=== PATIENT | female | born 1995 | race Caucasian/White ===

== ENCOUNTER 2017-03-22 10:03 | Inpatient (IN) ==
[2017-03-22] MEDS ORDERED: ZOFRAN IV PRN (14:56)
[2017-03-22] MEDS ORDERED: ZOFRAN ODT PO PRN (14:56)
[2017-03-22] MEDS ORDERED: BENADRYL PO ONE (15:00)
[2017-03-22] MEDS ORDERED: TYLENOL PO ONE (15:00)
[2017-03-22 16:11] LABS: HEMATOCRIT 19.4 % (37.0-47.0); HEMOGLOBIN 6.4 g/dL (12.0-16.0); MCH 29.6 PG (27-31); MCV 89.8 FL (81-99); MPV 10.1 FL (7.4-10.4); RBC 2.16 XMIL (4.2-5.4)
[2017-03-22] MEDS: VALTREX PO SCH (20:47)
[2017-03-22] MEDS: NORCO-5 PO PRN (20:47)
[2017-03-22] MEDS: INVANZ 1 GM/NS 1 GM/50 ML IVPB IV SCH (21:31)
[2017-03-22 21:55] LABS: BILIRUBIN URINE NEGATIVE (NEGATIVE); BLOOD URINE 4+ (NEGATIVE); CLARITY SL. CLOUDY (CLEAR); COLOR YELLOW; GLUCOSE URINE NEGATIVE (NEGATIVE); LEUKOCYTES URINE NEGATIVE (NEGATIVE); NITRITE URINE NEGATIVE (NEGATIVE); PROTEIN URINE NEGATIVE (NEGATIVE); URINE CULTURE PL NEEDED? NO; UROBILINOGEN URINE 1+(1 mg/dL)
[2017-03-22 22:04] LABS: URINE SOURCE CLEAN CATCH
[2017-03-22 22:23] LABS: URINE EPITHELIAL CELLS <10 /HPF (<10); URINE WBC <10 /HPF (<10)
[2017-03-23] MEDS ORDERED: BENADRYL PO ONE ×2 (02:30→17:30)
[2017-03-23] MEDS ORDERED: TYLENOL PO ONE ×2 (02:30→17:30)
[2017-03-23] MEDS: VALTREX PO SCH ×2 (06:31→17:30)
[2017-03-23] MEDS: NORCO-5 PO PRN ×2 (06:34→17:57)
[2017-03-23] MEDS ORDERED: MBX SOLUTION MT PRN (08:01)
[2017-03-23] MEDS ORDERED: NEUPOGEN SUBQ SCH (09:00)
[2017-03-23] MEDS: DIFLUCAN PO SCH (09:42)
[2017-03-23] MEDS: GRANIX SUBQ SCH (09:43)
[2017-03-23 11:53] LABS: MANUAL DIFF NEEDED? NO
[2017-03-23 12:10] LABS: HEMOGLOBIN 7.4 g/dL (12.0-16.0); MCH 26.5 PG (27-31); MCHC 33.6 g/dL (33-37); MCV 87.6 FL (81-99); RBC 2.51 XMIL (4.2-5.4)
[2017-03-23 12:11] LABS: LYMPH% 16.4 % (20.5-51.1); MPV 11.8 FL (7.4-10.4); NEUT% 78.6 % (42.2-75.2); PLT 96 X1000 (130-400)
[2017-03-23 12:19] LABS: AGAP 10; ALBUMIN 3.2 g/dL (3.5-5.0); ALKALINE PHOSPHATASE 85 U/L (32-104); BUN 6 mg/dL (8-22); CALCIUM 8.5 mg/dL (8.8-10.2); CHLORIDE 97 mmol/L (98-107); COSMO 268; GOT 17 U/L (10-30); GPT 26 U/L (10-36); POTASSIUM 4.1 mmol/L (3.5-5.1); SODIUM 135 mmol/L (136-145); TCO2 28 mmol/L (25-35); TOTAL PROTEIN 6.2 g/dL (6.3-8.3)
[2017-03-23] MEDS: TYLENOL PO PRN ×2 (13:53→23:47)
[2017-03-23] MEDS: KLONOPIN PO SCH ×2 (13:54→21:33)
[2017-03-23] MEDS: INVANZ 1 GM/NS 1 GM/50 ML IVPB IV SCH (21:33)
[2017-03-24] MEDS: TYLENOL PO PRN ×2 (06:09→11:59)
[2017-03-24] MEDS: VALTREX PO SCH ×2 (06:09→18:59)
[2017-03-24 06:26] LABS: HEMATOCRIT 25.7 % (37.0-47.0); HEMOGLOBIN 8.5 g/dL (12.0-16.0); MCH 29.4 PG (27-31); MCHC 33.1 g/dL (33-37); MCV 88.9 FL (81-99); MPV 10.6 FL (7.4-10.4); RBC 2.89 XMIL (4.2-5.4)
[2017-03-24 06:49] LABS: AGAP 10; ALBUMIN 2.9 g/dL (3.5-5.0); ALKALINE PHOSPHATASE 79 U/L (32-104); BUN 6 mg/dL (8-22); CALCIUM 9.1 mg/dL (8.8-10.2); CHLORIDE 100 mmol/L (98-107); COSMO 273; GOT 10 U/L (10-30); GPT 19 U/L (10-36); POTASSIUM 4.1 mmol/L (3.5-5.1); SODIUM 138 mmol/L (136-145); TCO2 28 mmol/L (25-35); TOTAL PROTEIN 6.9 g/dL (6.3-8.3)
[2017-03-24] MEDS: KLONOPIN PO SCH ×2 (08:59→23:59)
[2017-03-24] MEDS: DIFLUCAN PO SCH (08:59)
[2017-03-24] MEDS: GRANIX SUBQ SCH (13:47)
[2017-03-24] MEDS ORDERED: VANCOMYCIN IV PER PHARMACY MISC SCH (14:30)
[2017-03-24 14:34] LABS: HEMATOCRIT 24.2 % (37.0-47.0); HEMOGLOBIN 8.2 g/dL (12.0-16.0); LYMPH# 0.13 X1000 (1.2-3.4); LYMPH% 61.9 % (20.5-51.1); MANUAL DIFF NEEDED? YES; MCH 30.3 PG (27-31); MCHC 33.9 g/dL (33-37); MCV 89.3 FL (81-99); MONO# 0.08 X1000 (0.11-0.59); MONO% 38.1 % (1.7-9.3); MPV 10.1 FL (7.4-10.4); PLT 27 X1000 (130-400); RBC 2.71 XMIL (4.2-5.4)
[2017-03-24 14:52] LABS: LYMPHS 80 % (21-51)
[2017-03-24] MEDS ORDERED: MERREM 1 GM in NS 50 ML IV SCH ×2 (15:00→18:30)
[2017-03-24] MEDS: NORCO-5 PO PRN (16:00)
[2017-03-24] MEDS ORDERED: VANCOMYCIN 2,000 MG in NS 500 ML IV ONE (16:00)
[2017-03-24] MEDS ORDERED: MBX SOLUTION MT PRN (18:04)
[2017-03-24] MEDS ORDERED: ZOFRAN IV PRN (18:08)
[2017-03-24] MEDS ORDERED: ZOFRAN ODT PO PRN (18:09)
[2017-03-24] MEDS ORDERED: VANCOMYCIN 2 GM in NS 500 ML IV ONE (18:30)
[2017-03-24] MEDS: MERREM 1 GM in NS 50 ML IV SCH (23:59)
[2017-03-25] MEDS: TYLENOL PO PRN ×2 (00:09→08:22)
[2017-03-25] MEDS ORDERED: VANCOMYCIN 1,850 MG in NS 500 ML IV SCH (04:00)
[2017-03-25] MEDS: MERREM 1 GM in NS 50 ML IV SCH ×3 (04:30→22:17)
[2017-03-25] MEDS: VANCOMYCIN 1,850 MG in NS 500 ML IV SCH ×2 (05:59→18:44)
[2017-03-25] MEDS: VALTREX PO SCH ×2 (06:00→17:14)
[2017-03-25 06:30] LABS: AGAP 15; ALBUMIN 2.8 g/dL (3.5-5.0); ALKALINE PHOSPHATASE 77 U/L (32-104); BUN 7 mg/dL (8-22); CALCIUM 9.1 mg/dL (8.8-10.2); CHLORIDE 98 mmol/L (98-107); COSMO 281; GOT 9 U/L (10-30); GPT 17 U/L (10-36); POTASSIUM 4.3 mmol/L (3.5-5.1); SODIUM 142 mmol/L (136-145); TCO2 29 mmol/L (25-35); TOTAL PROTEIN 6.9 g/dL (6.3-8.3)
[2017-03-25 06:35] LABS: PLT 20 X1000 (130-400)
[2017-03-25 06:36] LABS: HEMATOCRIT 25.5 % (37.0-47.0); HEMOGLOBIN 8.6 g/dL (12.0-16.0); LYMPH# 0.28 X1000 (1.2-3.4); LYMPH% 87.5 % (20.5-51.1); MANUAL DIFF NEEDED? YES; MCH 30.2 PG (27-31); MCHC 33.7 g/dL (33-37); MCV 89.5 FL (81-99); MONO# 0.02 X1000 (0.11-0.59); MONO% 6.3 % (1.7-9.3); MPV 10.3 FL (7.4-10.4); NEUT% 6.2 % (42.2-75.2); RBC 2.85 XMIL (4.2-5.4)
[2017-03-25 06:54] LABS: LYMPHS 90 % (21-51)
[2017-03-25] MEDS: KLONOPIN PO SCH ×2 (08:22→22:17)
[2017-03-25] MEDS ORDERED: DIFLUCAN PO SCH (09:00)
[2017-03-25] MEDS: GRANIX SUBQ SCH (11:26)
[2017-03-25] MEDS: NS 1,000 ML IV SCH (14:31)
[2017-03-25] MEDS: MYCAMINE 100 MG in NS 100 ML IV SCH (16:28)
[2017-03-26] MEDS: MERREM 1 GM in NS 50 ML IV SCH ×3 (05:11→22:23)
[2017-03-26] MEDS: PRILOSEC PO SCH ×2 (05:21→09:25)
[2017-03-26] MEDS: VALTREX PO SCH ×2 (05:21→17:11)
[2017-03-26] MEDS: TYLENOL PO PRN ×4 (06:01→23:09)
[2017-03-26 07:09] LABS: HEMATOCRIT 22.5 % (37.0-47.0); HEMOGLOBIN 7.6 g/dL (12.0-16.0); LYMPH# 0.27 X1000 (1.2-3.4); LYMPH% 81.8 % (20.5-51.1); MANUAL DIFF NEEDED? YES; MCH 30.4 PG (27-31); MCHC 33.8 g/dL (33-37); MONO# 0.03 X1000 (0.11-0.59); MONO% 9.1 % (1.7-9.3); NEUT% 9.1 % (42.2-75.2); PLT 12 X1000 (130-400)
[2017-03-26 07:12] LABS: LYMPHS 70 % (21-51); MONO 20 % (1-9)
[2017-03-26 07:25] LABS: AGAP 16; ALBUMIN 2.5 g/dL (3.5-5.0); ALKALINE PHOSPHATASE 69 U/L (32-104); BUN 6 mg/dL (8-22); CALCIUM 8.5 mg/dL (8.8-10.2); CHLORIDE 99 mmol/L (98-107); COSMO 279; GOT 8 U/L (10-30); GPT 12 U/L (10-36); POTASSIUM 3.8 mmol/L (3.5-5.1); SODIUM 141 mmol/L (136-145); TCO2 26 mmol/L (25-35); TOTAL BILIRUBIN 0.46 mg/dL (0.20-1.00); TOTAL PROTEIN 6.2 g/dL (6.3-8.3)
[2017-03-26] MEDS: VANCOMYCIN 2,000 MG in NS 500 ML IV SCH ×2 (09:24→22:41)
[2017-03-26] MEDS: KLONOPIN PO SCH ×2 (09:24→23:09)
[2017-03-26] MEDS: GRANIX SUBQ SCH (09:24)
[2017-03-26] MEDS: NS 1,000 ML IV SCH ×2 (09:24→18:12)
[2017-03-26 14:17] LABS: INR 1.09; PROTIME 11.5 Seconds (9.2-11.7)
[2017-03-26] MEDS ORDERED: NS 250 ML ONE (14:56)
[2017-03-26] MEDS: MYCAMINE 100 MG in NS 100 ML IV SCH (17:11)
[2017-03-26] MEDS: VANCOMYCIN 1,850 MG in NS 500 ML IV SCH (17:13)
[2017-03-27] MEDS: NS 1,000 ML IV SCH ×2 (04:47→16:59)
[2017-03-27] MEDS: MERREM 1 GM in NS 50 ML IV SCH ×3 (04:47→22:00)
[2017-03-27] MEDS: TYLENOL PO PRN ×2 (06:13→22:00)
[2017-03-27] MEDS: VALTREX PO SCH ×2 (06:14→16:59)
[2017-03-27] MEDS: PRILOSEC PO SCH (06:14)
[2017-03-27 07:17] LABS: HEMATOCRIT 24.5 % (37.0-47.0); HEMOGLOBIN 8.1 g/dL (12.0-16.0); LYMPH# 0.21 X1000 (1.2-3.4); MANUAL DIFF NEEDED? YES; MCH 29.6 PG (27-31); MCHC 33.1 g/dL (33-37); MCV 89.4 FL (81-99); MONO# 0.03 X1000 (0.11-0.59); MONO% 10.7 % (1.7-9.3); MPV 10.4 FL (7.4-10.4); NEUT% 14.3 % (42.2-75.2); PLT 95 X1000 (130-400); RBC 2.74 XMIL (4.2-5.4)
[2017-03-27 07:21] LABS: AGAP 12; ALBUMIN 2.5 g/dL (3.5-5.0); ALKALINE PHOSPHATASE 62 U/L (32-104); BUN 6 mg/dL (8-22); CALCIUM 8.7 mg/dL (8.8-10.2); CHLORIDE 105 mmol/L (98-107); COSMO 286; GOT 9 U/L (10-30); GPT 10 U/L (10-36); POTASSIUM 3.9 mmol/L (3.5-5.1); SODIUM 145 mmol/L (136-145); TCO2 28 mmol/L (25-35); TOTAL BILIRUBIN 0.56 mg/dL (0.20-1.00); TOTAL PROTEIN 6.2 g/dL (6.3-8.3)
[2017-03-27] MEDS: GRANIX SUBQ SCH (10:58)
[2017-03-27] MEDS: KLONOPIN PO SCH ×2 (10:58→22:00)
[2017-03-27] MEDS: VANCOMYCIN 2,000 MG in NS 500 ML IV SCH ×2 (10:58→22:04)
[2017-03-27] MEDS: MYCAMINE 100 MG in NS 100 ML IV SCH (16:59)
[2017-03-28] MEDS: TYLENOL PO PRN ×2 (04:15→14:27)
[2017-03-28] MEDS: MERREM 1 GM in NS 50 ML IV SCH ×3 (04:16→20:50)
[2017-03-28] MEDS: NS 1,000 ML IV SCH ×3 (04:17→23:00)
[2017-03-28] MEDS: PRILOSEC PO SCH (06:27)
[2017-03-28] MEDS: VALTREX PO SCH ×2 (06:27→17:44)
[2017-03-28 07:00] LABS: HEMATOCRIT 23.7 % (37.0-47.0); HEMOGLOBIN 7.9 g/dL (12.0-16.0); LYMPH% 83.3 % (20.5-51.1); MANUAL DIFF NEEDED? YES; MCH 29.8 PG (27-31); MCHC 33.3 g/dL (33-37); MCV 89.4 FL (81-99); MONO# 0.02 X1000 (0.11-0.59); MONO% 5.6 % (1.7-9.3); NEUT% 11.1 % (42.2-75.2); PLT 58 X1000 (130-400); RBC 2.65 XMIL (4.2-5.4)
[2017-03-28 07:05] LABS: AGAP 11; ALBUMIN 2.3 g/dL (3.5-5.0); ALKALINE PHOSPHATASE 66 U/L (32-104); BUN 5 mg/dL (8-22); CALCIUM 8.3 mg/dL (8.8-10.2); CHLORIDE 103 mmol/L (98-107); COSMO 278; GOT 11 U/L (10-30); GPT 10 U/L (10-36); POTASSIUM 3.6 mmol/L (3.5-5.1); SODIUM 141 mmol/L (136-145); TCO2 27 mmol/L (25-35); TOTAL BILIRUBIN 0.54 mg/dL (0.20-1.00); TOTAL PROTEIN 5.8 g/dL (6.3-8.3)
[2017-03-28 07:43] LABS: LYMPHS 70 % (21-51); MONO 20 % (1-9)
[2017-03-28] MEDS: KLONOPIN PO SCH ×2 (09:38→20:50)
[2017-03-28] MEDS: VANCOMYCIN 2,000 MG in NS 500 ML IV SCH ×2 (09:38→22:57)
[2017-03-28] MEDS: GRANIX SUBQ SCH (09:38)
[2017-03-28] MEDS: LEVAQUIN 500 MG/D5W 500 MG/100 ML IVPB IV SCH (14:20)
[2017-03-29] MEDS: MERREM 1 GM in NS 50 ML IV SCH ×3 (04:29→22:25)
[2017-03-29] MEDS: PRILOSEC PO SCH (06:41)
[2017-03-29] MEDS: VALTREX PO SCH ×2 (06:41→17:47)
[2017-03-29] MEDS: GRANIX SUBQ SCH (08:49)
[2017-03-29] MEDS: VANCOMYCIN 2,000 MG in NS 500 ML IV SCH ×2 (08:50→22:26)
[2017-03-29 12:46] LABS: HEMATOCRIT 22.4 % (37.0-47.0); HEMOGLOBIN 7.4 g/dL (12.0-16.0); LYMPH% 78.9 % (20.5-51.1); MANUAL DIFF NEEDED? YES; MCH 29.6 PG (27-31); MCV 89.6 FL (81-99); MONO# 0.02 X1000 (0.11-0.59); MONO% 5.3 % (1.7-9.3); NEUT% 15.8 % (42.2-75.2); PLT 29 X1000 (130-400)
[2017-03-29 12:53] LABS: LYMPHS 80 % (21-51); MONO 10 % (1-9)
[2017-03-29] MEDS: LEVAQUIN 500 MG/D5W 500 MG/100 ML IVPB IV SCH (13:18)
[2017-03-29] MEDS: KLONOPIN PO SCH ×2 (13:19→22:25)
[2017-03-29] MEDS: NS 1,000 ML IV SCH ×2 (13:25→22:42)
[2017-03-29] MEDS: TYLENOL PO PRN ×2 (16:27→22:25)
[2017-03-29] MEDS: NORCO-5 PO PRN (19:25)
[2017-03-29] MEDS: DECADRON PO SCH (22:25)
[2017-03-30] MEDS: MERREM 1 GM in NS 50 ML IV SCH ×3 (04:44→20:11)
[2017-03-30] MEDS: DECADRON PO SCH ×3 (05:50→20:12)
[2017-03-30] MEDS: VALTREX PO SCH ×2 (05:51→18:38)
[2017-03-30] MEDS: PRILOSEC PO SCH ×2 (05:52→06:50)
[2017-03-30 06:56] LABS: HEMATOCRIT 26.2 % (37.0-47.0); HEMOGLOBIN 8.8 g/dL (12.0-16.0); IMM GRAN# 0.04 X1000 (0.0-0.04); IMM GRAN% 12.1 % (0.0-0.5); LYMPH# 0.21 X1000 (1.2-3.4); LYMPH% 63.6 % (20.5-51.1); MANUAL DIFF NEEDED? YES; MCH 29.9 PG (27-31); MCHC 33.6 g/dL (33-37); MCV 89.1 FL (81-99); MONO# 0.02 X1000 (0.11-0.59); MONO% 6.1 % (1.7-9.3); MPV 10.2 FL (7.4-10.4); NEUT% 18.2 % (42.2-75.2); RBC 2.94 XMIL (4.2-5.4)
[2017-03-30 07:00] LABS: PLT 22 X1000 (130-400)
[2017-03-30 07:12] LABS: BANDS 10 % (0-1); LYMPHS 70 % (21-51); MONO 10 % (1-9)
[2017-03-30] MEDS: CUBICIN 500 MG in NS 100 ML IV SCH (09:59)
[2017-03-30] MEDS: NS 1,000 ML IV SCH ×2 (09:59→23:12)
[2017-03-30] MEDS: KLONOPIN PO SCH ×2 (09:59→20:12)
[2017-03-30] MEDS: LEVAQUIN 500 MG/D5W 500 MG/100 ML IVPB IV SCH (13:48)
[2017-03-30] MEDS: GRANIX SUBQ SCH (13:52)
[2017-03-31] MEDS: MERREM 1 GM in NS 50 ML IV SCH ×3 (04:40→20:40)
[2017-03-31] MEDS: DECADRON PO SCH ×3 (04:40→20:40)
[2017-03-31] MEDS: VALTREX PO SCH ×2 (06:26→17:45)
[2017-03-31] MEDS: PRILOSEC PO SCH (06:26)
[2017-03-31 07:08] LABS: AGAP 10; BUN 10 mg/dL (8-22); CALCIUM 8.4 mg/dL (8.8-10.2); CHLORIDE 107 mmol/L (98-107); COSMO 287; POTASSIUM 3.8 mmol/L (3.5-5.1); SODIUM 144 mmol/L (136-145); TCO2 27 mmol/L (25-35)
[2017-03-31 09:08] LABS: AGAP 12; ALKALINE PHOSPHATASE 52 U/L (32-104); BUN 9 mg/dL (8-22); CALCIUM 7.5 mg/dL (8.8-10.2); CHLORIDE 108 mmol/L (98-107); COSMO 286; GOT 35 U/L (10-30); GPT 44 U/L (10-36); POTASSIUM 3.7 mmol/L (3.5-5.1); SODIUM 144 mmol/L (136-145); TCO2 24 mmol/L (25-35); TOTAL BILIRUBIN 0.36 mg/dL (0.20-1.00); TOTAL PROTEIN 5.1 g/dL (6.3-8.3)
[2017-03-31 09:47] LABS: HEMATOCRIT 28.6 % (37.0-47.0); HEMOGLOBIN 9.7 g/dL (12.0-16.0); LYMPH# 0.28 X1000 (1.2-3.4); LYMPH% 53.8 % (20.5-51.1); MANUAL DIFF NEEDED? NO; MCH 29.8 PG (27-31); MCHC 33.9 g/dL (33-37); MCV 87.7 FL (81-99); MONO# 0.03 X1000 (0.11-0.59); MONO% 5.8 % (1.7-9.3); NEUT% 40.4 % (42.2-75.2); PLT 44 X1000 (130-400); RBC 3.26 XMIL (4.2-5.4)
[2017-03-31] MEDS: GRANIX SUBQ SCH (10:24)
[2017-03-31] MEDS: KLONOPIN PO SCH ×2 (10:24→20:40)
[2017-03-31] MEDS: CUBICIN 500 MG in NS 100 ML IV SCH (10:24)
[2017-03-31] MEDS: LEVAQUIN 500 MG/D5W 500 MG/100 ML IVPB IV SCH (13:38)
[2017-03-31] MEDS: NS 1,000 ML IV SCH ×2 (13:38→16:30)
[2017-03-31] MEDS: DOXYCYCLINE PO SCH ×3 (17:45→20:41)
[2017-04-01] MEDS: NS 1,000 ML IV SCH ×3 (03:00→23:42)
[2017-04-01] MEDS: MERREM 1 GM in NS 50 ML IV SCH ×3 (04:42→21:02)
[2017-04-01] MEDS: DECADRON PO SCH ×3 (04:42→21:02)
[2017-04-01] MEDS: VALTREX PO SCH ×2 (06:22→17:32)
[2017-04-01] MEDS: PRILOSEC PO SCH (06:22)
[2017-04-01 09:36] LABS: MANUAL DIFF NEEDED? NO
[2017-04-01 10:05] LABS: AGAP 13; ALBUMIN 2.3 g/dL (3.5-5.0); ALKALINE PHOSPHATASE 53 U/L (32-104); BUN 11 mg/dL (8-22); CALCIUM 8.3 mg/dL (8.8-10.2); CHLORIDE 106 mmol/L (98-107); COSMO 288; GOT 28 U/L (10-30); GPT 53 U/L (10-36); POTASSIUM 4.1 mmol/L (3.5-5.1); SODIUM 145 mmol/L (136-145); TCO2 26 mmol/L (25-35); TOTAL BILIRUBIN 0.34 mg/dL (0.20-1.00)
[2017-04-01] MEDS: KLONOPIN PO SCH ×2 (10:21→21:02)
[2017-04-01] MEDS: DOXYCYCLINE PO SCH ×2 (10:21→21:03)
[2017-04-01] MEDS: GRANIX SUBQ SCH (10:21)
[2017-04-01] MEDS: CUBICIN 500 MG in NS 100 ML IV SCH (10:26)
[2017-04-01 10:52] LABS: HEMATOCRIT 26.3 % (37.0-47.0); HEMOGLOBIN 8.7 g/dL (12.0-16.0); LYMPH# 0.35 X1000 (1.2-3.4); LYMPH% 59.3 % (20.5-51.1); MCH 29.7 PG (27-31); MCHC 33.1 g/dL (33-37); MCV 89.8 FL (81-99); MONO# 0.03 X1000 (0.11-0.59); MONO% 5.1 % (1.7-9.3); MPV 10.2 FL (7.4-10.4); NEUT% 35.6 % (42.2-75.2); PLT 21 X1000 (130-400); RBC 2.93 XMIL (4.2-5.4)
[2017-04-01] MEDS ORDERED: DILAUDID IV PRN (16:48)
[2017-04-01] MEDS: DILAUDID IV SCH ×2 (17:32→23:36)
[2017-04-02] MEDS: MERREM 1 GM in NS 50 ML IV SCH ×3 (04:02→21:39)
[2017-04-02] MEDS: DECADRON PO SCH ×3 (05:10→21:39)
[2017-04-02] MEDS: VALTREX PO SCH ×2 (05:10→17:07)
[2017-04-02] MEDS: DILAUDID IV SCH ×4 (05:10→23:38)
[2017-04-02] MEDS: PRILOSEC PO SCH (06:46)
[2017-04-02] MEDS: KLONOPIN PO SCH ×2 (09:59→21:40)
[2017-04-02] MEDS: GRANIX SUBQ SCH (09:59)
[2017-04-02] MEDS: DOXYCYCLINE PO SCH ×2 (09:59→21:40)
[2017-04-02] MEDS: NS 1,000 ML IV SCH (09:59)
[2017-04-02] MEDS: CUBICIN 500 MG in NS 100 ML IV SCH (11:24)
[2017-04-02 12:04] LABS: HEMATOCRIT 28.1 % (37.0-47.0); HEMOGLOBIN 9.3 g/dL (12.0-16.0); IMM GRAN# 0.11 X1000 (0.0-0.04); IMM GRAN% 12.9 % (0.0-0.5); LYMPH# 0.37 X1000 (1.2-3.4); LYMPH% 43.5 % (20.5-51.1); MANUAL DIFF NEEDED? NO; MCH 29.7 PG (27-31); MCHC 33.1 g/dL (33-37); MCV 89.8 FL (81-99); MONO# 0.08 X1000 (0.11-0.59); MONO% 9.4 % (1.7-9.3); MPV 9.8 FL (7.4-10.4); NEUT% 34.2 % (42.2-75.2); PLT 15 X1000 (130-400); RBC 3.13 XMIL (4.2-5.4)
[2017-04-03] MEDS: NS 1,000 ML IV SCH ×3 (01:01→21:59)
[2017-04-03] MEDS: MERREM 1 GM in NS 50 ML IV SCH ×3 (04:55→21:55)
[2017-04-03] MEDS: DECADRON PO SCH ×3 (04:57→21:57)
[2017-04-03] MEDS: DILAUDID IV SCH ×4 (04:57→22:03)
[2017-04-03] MEDS: VALTREX PO SCH ×2 (05:00→18:11)
[2017-04-03] MEDS: PRILOSEC PO SCH (05:01)
[2017-04-03 06:32] LABS: HEMATOCRIT 26.1 % (37.0-47.0); HEMOGLOBIN 8.5 g/dL (12.0-16.0); IMM GRAN% 8.1 % (0.0-0.5); LYMPH# 0.48 X1000 (1.2-3.4); MANUAL DIFF NEEDED? YES; MCH 29.6 PG (27-31); MCHC 32.6 g/dL (33-37); MCV 90.9 FL (81-99); MONO# 0.12 X1000 (0.11-0.59); MONO% 9.8 % (1.7-9.3); MPV 10.4 FL (7.4-10.4); NEUT% 43.1 % (42.2-75.2); PLT 53 X1000 (130-400); RBC 2.87 XMIL (4.2-5.4)
[2017-04-03 06:55] LABS: BANDS 20 % (0-1); LYMPHS 32 % (21-51); MONO 16 % (1-9)
[2017-04-03] MEDS: KLONOPIN PO SCH ×2 (09:02→21:57)
[2017-04-03] MEDS: DOXYCYCLINE PO SCH ×2 (09:02→21:57)
[2017-04-03] MEDS: GRANIX SUBQ SCH (09:02)
[2017-04-03] MEDS: CUBICIN 500 MG in NS 100 ML IV SCH (11:07)
[2017-04-04] MEDS: MERREM 1 GM in NS 50 ML IV SCH ×3 (05:30→21:28)
[2017-04-04] MEDS: DECADRON PO SCH ×3 (05:31→21:29)
[2017-04-04] MEDS: VALTREX PO SCH ×2 (05:31→17:32)
[2017-04-04] MEDS: PRILOSEC PO SCH (05:32)
[2017-04-04] MEDS: DILAUDID IV SCH ×4 (05:32→23:14)
[2017-04-04 06:30] LABS: HEMATOCRIT 25.2 % (37.0-47.0); HEMOGLOBIN 8.2 g/dL (12.0-16.0); LYMPH% 34.5 % (20.5-51.1); MANUAL DIFF NEEDED? NO; MCH 29.7 PG (27-31); MCHC 32.5 g/dL (33-37); MCV 91.3 FL (81-99); MONO# 0.21 X1000 (0.11-0.59); MONO% 12.1 % (1.7-9.3); MPV 11.3 FL (7.4-10.4); NEUT% 53.4 % (42.2-75.2); PLT 40 X1000 (130-400); RBC 2.76 XMIL (4.2-5.4)
[2017-04-04] MEDS ORDERED: GRANIX SUBQ ONE (08:00)
[2017-04-04] MEDS ORDERED: NS 1,000 ML ONE (10:55)
[2017-04-04] MEDS: KLONOPIN PO SCH ×2 (10:58→21:28)
[2017-04-04] MEDS: DOXYCYCLINE PO SCH ×2 (10:58→21:29)
[2017-04-04] MEDS: CUBICIN 500 MG in NS 100 ML IV SCH (10:59)
[2017-04-04] MEDS: NS 1,000 ML IV SCH ×3 (10:59→21:32)
[2017-04-04] MEDS: GRANIX SUBQ SCH (12:49)
[2017-04-05] MEDS ORDERED: BENADRYL IV ONE (00:47)
[2017-04-05] MEDS: MERREM 1 GM in NS 50 ML IV SCH ×3 (06:14→21:12)
[2017-04-05] MEDS: DILAUDID IV SCH ×4 (06:16→23:24)
[2017-04-05] MEDS: PRILOSEC PO SCH (06:17)
[2017-04-05] MEDS: DECADRON PO SCH ×3 (06:17→21:12)
[2017-04-05] MEDS: VALTREX PO SCH ×2 (06:17→17:35)
[2017-04-05 06:57] LABS: PLT 28 X1000 (130-400)
[2017-04-05 06:59] LABS: HEMATOCRIT 22.8 % (37.0-47.0); HEMOGLOBIN 7.4 g/dL (12.0-16.0); LYMPH# 0.54 X1000 (1.2-3.4); LYMPH% 33.5 % (20.5-51.1); MANUAL DIFF NEEDED? YES; MCH 29.6 PG (27-31); MCHC 32.5 g/dL (33-37); MCV 91.2 FL (81-99); MONO# 0.21 X1000 (0.11-0.59); MPV 10.7 FL (7.4-10.4); NEUT% 53.5 % (42.2-75.2)
[2017-04-05 07:00] LABS: AGAP 13; BUN 12 mg/dL (8-22); CALCIUM 7.6 mg/dL (8.8-10.2); CHLORIDE 109 mmol/L (98-107); COSMO 301; POTASSIUM 4.1 mmol/L (3.5-5.1); SODIUM 152 mmol/L (136-145); TCO2 30 mmol/L (25-35)
[2017-04-05 07:10] LABS: LYMPHS 36 % (21-51); MONO 12 % (1-9)
[2017-04-05] MEDS: KLONOPIN PO SCH ×2 (09:42→21:12)
[2017-04-05] MEDS: DOXYCYCLINE PO SCH ×2 (09:42→21:12)
[2017-04-05] MEDS: NS 1,000 ML IV SCH ×2 (09:44→19:19)
[2017-04-05] MEDS: GRANIX SUBQ SCH (10:01)
[2017-04-05] MEDS: CUBICIN 500 MG in NS 100 ML IV SCH (11:36)
[2017-04-05] MEDS ORDERED: CATHFLO IV ONE (16:15)
[2017-04-05] MEDS ORDERED: SODIUM CHLORIDE 0.9% 20 ML ONE (17:35)
[2017-04-06] MEDS: NS 1,000 ML IV SCH ×2 (04:19→20:05)
[2017-04-06] MEDS: MERREM 1 GM in NS 50 ML IV SCH ×3 (05:04→21:16)
[2017-04-06] MEDS: DILAUDID IV SCH ×3 (05:06→17:33)
[2017-04-06] MEDS: PRILOSEC PO SCH (06:03)
[2017-04-06] MEDS: VALTREX PO SCH ×2 (06:03→20:04)
[2017-04-06] MEDS: DECADRON PO SCH ×3 (06:04→21:16)
[2017-04-06 07:03] LABS: AGAP 9; ALBUMIN 3.1 g/dL (3.5-5.0); ALKALINE PHOSPHATASE 52 U/L (32-104); BUN 17 mg/dL (8-22); CALCIUM 8.3 mg/dL (8.8-10.2); CHLORIDE 100 mmol/L (98-107); COSMO 281; GOT 9 U/L (10-30); GPT 30 U/L (10-36); POTASSIUM 4.4 mmol/L (3.5-5.1); SODIUM 140 mmol/L (136-145); TCO2 31 mmol/L (25-35); TOTAL BILIRUBIN 0.21 mg/dL (0.20-1.00); TOTAL PROTEIN 5.4 g/dL (6.3-8.3)
[2017-04-06 07:11] LABS: HEMATOCRIT 24.5 % (37.0-47.0); HEMOGLOBIN 7.9 g/dL (12.0-16.0); IMM GRAN# 0.05 X1000 (0.0-0.04); IMM GRAN% 1.9 % (0.0-0.5); LYMPH# 0.72 X1000 (1.2-3.4); LYMPH% 26.8 % (20.5-51.1); MANUAL DIFF NEEDED? YES; MCH 29.2 PG (27-31); MCHC 32.2 g/dL (33-37); MCV 90.4 FL (81-99); MONO# 0.53 X1000 (0.11-0.59); MONO% 19.7 % (1.7-9.3); MPV 10.5 FL (7.4-10.4); NEUT% 51.6 % (42.2-75.2); PLT 21 X1000 (130-400); RBC 2.71 XMIL (4.2-5.4)
[2017-04-06 07:19] LABS: BANDS 20 % (0-1); LYMPHS 24 % (21-51); MONO 8 % (1-9)
[2017-04-06] MEDS: NORCO-5 PO PRN (09:21)
[2017-04-06] MEDS: DOXYCYCLINE PO SCH ×2 (09:21→21:16)
[2017-04-06] MEDS: CUBICIN 500 MG in NS 100 ML IV SCH (09:21)
[2017-04-06] MEDS: GRANIX SUBQ SCH (09:21)
[2017-04-06] MEDS: KLONOPIN PO SCH ×2 (09:21→21:16)
[2017-04-07] MEDS: NS 1,000 ML IV SCH ×3 (00:46→20:40)
[2017-04-07] MEDS: DILAUDID IV SCH ×5 (00:46→23:09)
[2017-04-07] MEDS: BENADRYL IV PRN ×3 (01:12→17:37)
[2017-04-07] MEDS: DECADRON PO SCH ×3 (06:07→20:40)
[2017-04-07] MEDS: VALTREX PO SCH ×2 (06:08→17:34)
[2017-04-07] MEDS: MERREM 1 GM in NS 50 ML IV SCH ×2 (06:11→12:13)
[2017-04-07 06:49] LABS: HEMOGLOBIN 8.9 g/dL (12.0-16.0); IMM GRAN# 0.04 X1000 (0.0-0.04); IMM GRAN% 1.2 % (0.0-0.5); LYMPH# 0.99 X1000 (1.2-3.4); LYMPH% 28.5 % (20.5-51.1); MANUAL DIFF NEEDED? YES; MCH 29.6 PG (27-31); MCV 89.7 FL (81-99); MONO# 0.56 X1000 (0.11-0.59); MONO% 16.1 % (1.7-9.3); MPV 11.4 FL (7.4-10.4); NEUT% 54.2 % (42.2-75.2); RBC 3.01 XMIL (4.2-5.4)
[2017-04-07 06:50] LABS: PLT 16 X1000 (130-400)
[2017-04-07 07:12] LABS: LYMPHS 36 % (21-51); MONO 2 % (1-9)
[2017-04-07] MEDS: PRILOSEC PO SCH (07:45)
[2017-04-07] MEDS: DOXYCYCLINE PO SCH (08:53)
[2017-04-07] MEDS: NORCO-5 PO PRN (08:53)
[2017-04-07] MEDS: GRANIX SUBQ SCH (08:53)
[2017-04-07] MEDS: CUBICIN 500 MG in NS 100 ML IV SCH (11:00)
[2017-04-07] MEDS: KLONOPIN PO SCH ×2 (11:00→20:40)
[2017-04-07] MEDS: LEVAQUIN PO SCH (17:34)
[2017-04-08] MEDS: BENADRYL IV PRN (00:38)
[2017-04-08] MEDS: DILAUDID IV SCH ×3 (05:50→18:16)
[2017-04-08] MEDS: DECADRON PO SCH ×2 (05:51→14:17)
[2017-04-08] MEDS: NS 1,000 ML IV SCH (05:56)
[2017-04-08] MEDS: VALTREX PO SCH ×2 (05:56→18:24)
[2017-04-08] MEDS: PRILOSEC PO SCH (05:59)
[2017-04-08 07:00] LABS: HEMATOCRIT 26.3 % (37.0-47.0); HEMOGLOBIN 8.6 g/dL (12.0-16.0); IMM GRAN# 0.09 X1000 (0.0-0.04); IMM GRAN% 3.2 % (0.0-0.5); LYMPH# 0.92 X1000 (1.2-3.4); MANUAL DIFF NEEDED? YES; MCH 29.4 PG (27-31); MCHC 32.7 g/dL (33-37); MCV 89.8 FL (81-99); MONO# 0.47 X1000 (0.11-0.59); MONO% 16.8 % (1.7-9.3); MPV 10.2 FL (7.4-10.4); PLT 52 X1000 (130-400); RBC 2.93 XMIL (4.2-5.4)
[2017-04-08 07:35] LABS: BANDS 5 % (0-1); LYMPHS 30 % (21-51)
[2017-04-08 08:00] VITALS: BP 115/70
[2017-04-08] MEDS: LEVAQUIN PO SCH (08:39)
[2017-04-08] MEDS: KLONOPIN PO SCH (08:39)
[2017-04-08] MEDS: GRANIX SUBQ SCH (08:39)
== END 2017-04-08 21:48 | disposition home or self-care (01) ==
LOC: MRI 10:03 → SUATTDRO 14:20 → P.MEDSURG 14:20 → 3N 03-24 17:32
PROVIDERS: ATTEND Internal Medicine